=== PATIENT | male | born 1985 | race Two or more races ===

== ENCOUNTER 2024-11-16 07:43 | Outpatient (RCR) | payer MEDICAID, SELFPAY | END 2024-11-16 23:59 | disposition home or self-care (01) | LOC: SCTC 07:43 | PROVIDERS: PCP Nurse Practitioner; Referring Provider Nurse Practitioner; Visit Provider Nurse Practitioner Family | DX: D69.6 Thrombocytopenia, unspecified (principal); D50.9 Iron deficiency anemia, unspecified; K74.60 Unspecified cirrhosis of liver; R18.8 Other ascites; Z87.19 Personal history of other diseases of the digestive system | CPT/HCPCS: 99213; G0463 ==

== ENCOUNTER 2025-01-22 11:06 | Outpatient (RCR) | payer MEDICAID, SELFPAY | END 2025-02-16 23:59 | disposition home or self-care (01) | LOC: SCTC 11:06 | PROVIDERS: PCP Nurse Practitioner; Referring Provider Nurse Practitioner; Visit Provider Nurse Practitioner Family | DX: D69.6 Thrombocytopenia, unspecified (principal); D50.9 Iron deficiency anemia, unspecified; K70.31 Alcoholic cirrhosis of liver with ascites | CPT/HCPCS: 99212; G0463 ==

== ENCOUNTER → 2025-04-02 | Outpatient (CLI) | payer OTHER, SELFPAY ==
--- NOTE | 2025-04-02 09:45 | XR_ITS ---
Examination: Abdomen sonogram, Limited Date and time of exam: April 02, 2025, 1014 hours INDICATIONS: Diagnosis cirrhosis Technique: Real-time sanchez scale transabdominal sonographic images of the upper abdomen obtained. Findings: 7 mm gallstone Normal gallbladder wall 0.2 cm Normal common bile duct 0.3 cm Pancreatic head 2.6 cm Liver 13.8 cm fatty infiltration no focal liver lesions Normal hepatopetal portal venous flow Patent IVC IMPRESSION: Cholelithiasis, negative for cholecystitis
== END | disposition home or self-care (01) ==
PROVIDERS: Referring Provider Nurse Practitioner Family; Visit Provider Nurse Practitioner Family
DX: K80.20 Calculus of gallbladder without cholecystitis without obstruction (principal)
CPT/HCPCS: 76705